=== PATIENT | female | born 1980 | race African-American/Black ===

== ENCOUNTER 2018-07-15 20:41 | Emergency (ER) | payer MEDICARE | END 2018-07-15 21:18 | disposition left against medical advice (07) | LOC: ER 20:41 | DX: I10 Essential (primary) hypertension (principal); Z53.21 Procedure and treatment not carried out due to patient leaving prior to being seen by health care provider ==

== ENCOUNTER 2018-08-22 16:49 | Emergency (ER) | payer MEDICARE ==
[~2018-08-22] VITALS: Ht 154.9 cm; Wt 104.0 kg
[2018-08-22 18:15] VITALS: BP 146/92
[2018-08-22] MEDS ORDERED: KETOROLAC 60MG/2ML VIAL IM ONE (18:15)
[2018-08-22] MEDS ORDERED: DIAZEPAM 2 MG TABLET PO ONE (18:15)
[2018-08-22] MEDS ORDERED: DEXAMETHASONE 10 MG/ML VIAL IM ONE (18:15)
== END 2018-08-22 19:18 | disposition home or self-care (01) ==
LOC: ER 16:49
DX: S39.012A Strain of muscle, fascia and tendon of lower back, initial encounter (principal); S16.1XXA Strain of muscle, fascia and tendon at neck level, initial encounter; I10 Essential (primary) hypertension; Z90.49 Acquired absence of other specified parts of digestive tract; Z98.890 Other specified postprocedural states; V89.2XXA Person injured in unspecified motor-vehicle accident, traffic, initial encounter; Y93.89 Activity, other specified; Y92.89 Other specified places as the place of occurrence of the external cause; Y99.8 Other external cause status
CPT/HCPCS: 96372; 99284; J1100; J1885

== ENCOUNTER 2019-10-01 07:32 | Emergency (ER) | payer MEDICARE ==
[~2019-10-01] VITALS: Ht 157.5 cm; Wt 90.0 kg
[2019-10-01] MEDS ORDERED: ONDANSETRON HCL 4MG/2ML INJ IV STA (08:14)
[2019-10-01] MEDS ORDERED: MORPHINE SULFATE 4 MG/ML CPJ (NOT FOR IM USE) IV STA (08:14)
[2019-10-01 08:28] LABS: BASOPHILS % 0.4 % (0.0-2.0); EOSINOPHILS % 0.2 % (0.0-5.0); HEMATOCRIT. 34.4 % (36.0-48.0); HEMOGLOBIN. 11.2 g/dL (12.0-16.0); LYMPHOCYTES % 18.5 % (20.0-50.0); MEAN CORPUSCULAR HEMOGLOBIN 24.7 pg (28.0-32.0); MEAN CORPUSCULAR VOLUME 76.1 fL (81.0-99.0); NEUTROPHILS % 69.9 % (40.0-76.0); PLATELET 294 x1000/uL (130-400); RED BLOOD CELL COUNT 4.52 mill/uL (4.2-5.4); RED CELL DISTRIBUTION WIDTH 16.2 % (11.6-14.6)
[2019-10-01 08:35] LABS: CHLORIDE 103 mEq/L (98-107)
[2019-10-01 09:42] LABS: CLARITY URINE CLOUDY (CLEAR); COLOR URINE YELLOW (YELLOW); KETONES URINE NEGATIVE (NEGATIVE); LEUKOCYTE ESTERASE URINE 2+ (NEGATIVE); NITRITE URINE NEGATIVE (NEGATIVE); OCCULT BLOOD URINE NEGATIVE (NEGATIVE); PROTEIN URINE NEGATIVE (NEGATIVE); SPECIFIC GRAVITY URINE 1.018 (1.005-1.030)
[2019-10-01] MEDS ORDERED: KETOROLAC 15MG/ML VIAL IV ONE (10:15)
[2019-10-01] MEDS ORDERED: CEPHALEXIN 250MG CAPSULE PO ONE (10:15)
[2019-10-01 11:55] VITALS: BP 138/81
== END 2019-10-01 12:05 | disposition home or self-care (01) ==
LOC: ER 07:32
DX: N39.0 Urinary tract infection, site not specified (principal); K57.30 Diverticulosis of large intestine without perforation or abscess without bleeding; I10 Essential (primary) hypertension; Z90.49 Acquired absence of other specified parts of digestive tract; Z98.890 Other specified postprocedural states
CPT/HCPCS: 36415; 74176; 80053; 81003; 81025; 83690; 85025; 87086; 96374; 96375; 99284; J1885; J2270; J2405; Z7610